=== PATIENT | male | born 1970 | race Caucasian/White ===

== ENCOUNTER 2020-05-18 21:34 | Emergency (ER) | payer MEDICARE, OTHER ==
[2020-05-18] MEDS ORDERED: HYDROmorphone 1 MG/ML 1 ML SYRINGE IVP STA (21:42)
[2020-05-18 21:44] VITALS: RESP 16; TEMP 98
--- NOTE | 2020-05-18 22:58 | US ---
EXAMINATION TYPE: US scrotum with doppler. Grayscale and color Doppler Duplex imaging performed of tamy jett scrotum. DATE OF EXAM: 05/18/2020 COMPARISON: NONE CLINICAL HISTORY: testicular pain. Pain x 1 week. EXAM MEASUREMENTS: TESTICLES: Right Testicle: 4.4 x 3.0 x 2.9 cm Left Testicle: 4.5 x 3.6 x 3.4 cm EPIDIDYMIS HEAD: Right Epididymis: 1.0 x 1.0 x 1.0 cm Left Epididymis: 0.7 x 1.5 x 1.1 cm Anechoic area seen within right epididymal head measuring 0.3 x 0.5 x 0.3 cm. Left epididymal head appears heterogeneous. Doppler performed to assess for testicular vascularity; bilateral color flow and waveforms are seen. Presence of hydroceles: Complex area seen on the right measurin.3 x 4.2 x 2.6 cm. Anechoic area seen on the left measuring 1.6 x 0.9 x 0.8 cm. Presence of varicoceles: Not seen. Superior and lateral to the right testicle, there appears to be a separate complex area seen measurin g 4.1 x 4.1 x 2.4 cm. IMPRESSION no testicular torsion or mass. There is complex right-sided large hydrocele. Small epididy mal cyst on the right side. No evidence of solid epididymal mass.:
--- NOTE | 2020-05-18 23:10 | ED ---
Male Urogenital HPI - General Chief complaint: Urogenital Stated complaint: Male Time Seen by Provider: 05/18/20 21:36 Source: patient, EMS Mode of arrival: EMS Limitations: no limitations - History of Present Illness Initial comments: Josh is a 49-year-old male presents the ER today via ambulance from a transfer from [facility] where he was evaluated for right-sided groin testicular pain. Patient reports pain began approximately week ago after shoveling snow but has progressively worsened. He noted progressively worsening swelling of th e right testicle. He denies any concern for sexually transmitted infection. Outpatient labs were unremarkable urinalysis without signs of infection, computed tomography scan shows a large vessels of the testicles and suggested an ultrasound be completed. Outside hospital did not have ultrasound capability so the patient was transferred here. - Related Data Allergies Allergy/AdvReac Type Severity Reaction Status Date / Time No Known Allergies Allergy Verified 05/18/20 22:01 Review of Systems ROS Statement: Those systems with pertinent positive or pertinent negative responses have been documented in the HPI. ROS Other: All systems not noted in ROS Statement are negative. Past Medical History Additional Past Medical History / Comment(s): bone infection in jaw 2007 History of Any Multi-Drug Resistant Organisms: None Reported Past Surgical History: Orthopedic Surgery Past Psychological History: Anxiety, Bipolar, Depression Smoking Status: Current every day smoker Past Alcohol Use History: Rare Past Drug Use History: Marijuana General Exam - General Exam Comments Initial Comments: Physical Exam GENERAL: Patient is well-developed and well-nourished. Patient is nontoxic and well-hydrated and is in no distress. HENT: Normocephalic, Atraumatic. EYES: PERRL, EOMI PULMONARY: Unlabored respirations. CARDIOVASCULAR: RRR Warm and well perfused extremities ABDOMEN: Non-distended SKIN: No rashes or bruising : Penis normal, circumcised Right testicle swollen and tender NEUROLOGIC: Alert and oriented Normal speech Normal gait MUSCULOSKELETAL: Moving all extremities with no apparent injury PSYCHIATRIC: No SI/HI Limitations: no limitations Course Vital Signs 05/18/20 21:38 Temperature 98 F Pulse Rate 88 Respiratory 16 Rate Blood Pressure 143/80 O2 Sat by Pulse 96 Oximetry Medical Decision Making - Medical Decision Making Patient care was discussed with transferring physician Ultrasound was ordered immediately upon arrival, was completed and reveals a large hydrocele with no signs of torsion or mass Were discussed with the patient who expresses relief, is comfortable with the plan for discharge home, supportive care was discussed referral to urology here in [facility] as well as an [place] which is closer to where the patient works was provided Disposition Clinical Impression: Hydrocele in adult Disposition: HOME SELF-CARE Instructions (If sedation given, give patient instructions): Hydrocele (ED) Is patient prescribed a controlled substance at d/c from ED?: No Referrals: Tran Dick MD [Primary Care Provider] - 1-2 days David Palma MD [STAFF PHYSICIAN] - 1-2 days Vik Angel MD [REFERRING] - 1-2 days
[2020-05-18 23:30] VITALS: BP 124/98; PULSE 75
== END 2020-05-18 23:30 | disposition home or self-care (01) ==
LOC: EC 21:34
DX: N43.3 Hydrocele, unspecified (principal); F17.200 Nicotine dependence, unspecified, uncomplicated
CPT/HCPCS: 93975; 76870; 99284; 96374; J1170

== ENCOUNTER → 2023-04-30 | Outpatient (CLI) | payer OTHER ==
--- NOTE | 2023-04-30 15:51 | P.SLEEP ---
History of Present Illness DATE: 04/30/2023 CONSULTATION/NEW PATIENT EVALUATION HISTORY OF PRESENT ILLNESS/SLEEP-WAKE EVALUATION: 52 year old gentleman had been evaluated in the sleep center for possible obstructive sleep apnea hypopnea syndrome. SLEEP SCHEDULE: Usually sleep schedule from 8 9 PM to 6:307 AM. FALLING ASLEEP: Patient has difficulties with falling asleep. DURING SLEEP: Patient snores and has multiple awakenings from sleep with episodes of gasping for air, grinding teeth. Positive history of sleep talking. Questionable positive history of hypnogogical hallucinations, no sleep paralysis, or cataplexy. DURING THE DAY/WAKE STATE: Patient wake up tired, has difficulties to place attention, has problems with memory, concentration, irritability. [place] sleepiness scale is in very high range of 17. Patient does not take any naps. PAST MEDICAL HISTORY: Bipolar disorder, anxiety, hyperlipidemia , sinuses problems, headaches, acid reflux. PAST SURGICAL HISTORY: Status post LeFort II fracture with bone replacement in 2006. MEDICATIONS: Vistaril, Aristada,. SOCIAL HISTO Positive history of smoking, quit in 2015, alcohol consumption negative. FAMILY HISTORY: Hypertension, heart problems, stroke, arthritis, tuberculosis, thyroid problems, during sleep. REVIEW OF SYSTEMS: Difficulties to initiate sleep, snoring, multiple awakenings from sleep, tiredness and sleepiness during the day. No fevers. No double vision. No recent chest pain. No shortness of breath. No abdominal pain. No bleeding episodes. No blood in urine. No seizure episodes. PHYSICAL EXAMINATION: GENERAL: A pleasant patient without any distress. VITAL SIGNS: BP 133/79 , HR 90 , RR 16 , weight 178 pounds, height 5 foot 10.5 inches, body mass index 25.1 . HEENT: PERRLA, EOMI. Evaluation of oropharynx showed tongue protrudes midline, low position of soft palate Mallampati 3-4. NECK: Supple. No JVD. Thyroid is not palpable. 15-3/4 inches in circumference. LUNGS: Clear to percussion and to auscultation. Good air exchange. No wheezing or rhonchi. HEART: S1, S2 regular. No murmurs, gallops or rubs. ABDOMEN: Soft and nontender. Bowel sounds are present. No organomegaly appreciated. EXTREMITIES: No clubbing or cyanosis. PURE PAK MACHINE OPERATOR: Awake, alert, and oriented x3. Cranial nerves 2 to 7 intact. There is no fasciculation or atrophy noted. No focal deficits observed. ASSESSMENT: 1. Snoring, multiple awakenings from sleep, extremely low position of soft palate, sleepiness. Obstructive sleep apnea-hypopnea syndrome. 2. Psychophysiological insomnia and insomnia secondary to anxiety. 3. History of bipolar. 4. History of anxiety. 5 Headaches. 6 . Acid reflux. 7. Status post low jaw fracture with bone replacement. 8. Sinuses problems. 9 . Hyperlipidemia PLAN: 1. Polysomnography for evaluation of patient's breathing during sleep. 2. Following plan after reading sleep test. 3. Preferable position during sleep on the side. 4. No driving if patient feels any sleepiness. Patient is aware of civil and criminal liability for unsafe driving. 5. Sleep hygiene with regular sleep time for at least 7.5-8 hours. 6. Watching weight. Thank you very much for referring this patient for consultation. Sincerely, Wild Timmons MD, PhD, FAASM. Diplomat of [employer], Sleep Medicine Board by [employer] [facility] [place] Past Medical History Additional Past Medical History / Comment(s): bone infection in jaw 2006 History of Any Multi-Drug Resistant Organisms: None Reported Past Surgical History: Orthopedic Surgery Past Psychological History: Anxiety, Bipolar, Depression Smoking Status: Current every day smoker Past Alcohol Use History: Rare Past Drug Use History: Marijuana Medications and Allergies Allergies Allergy/AdvReac Type Severity Reaction Status Date / Time No Known Allergies Allergy Verified 05/18/20 22:01 Sleep Note - Sleep Note Sleep Note: Temperature: Pulse Rate: Respiratory Rate: Blood Pressure: SpO2: Height: Weight: BMI: Neck Circumference:
== END ==
LOC: 3 N SLEEP 13:35
PROVIDERS: ATTEND Internal Medicine
DX: G47.33 Obstructive sleep apnea (adult) (pediatric) (principal); G47.10 Hypersomnia, unspecified; F51.04 Psychophysiologic insomnia; F41.9 Anxiety disorder, unspecified; F31.9 Bipolar disorder, unspecified; R51.9 Headache, unspecified; E78.5 Hyperlipidemia, unspecified; J32.9 Chronic sinusitis, unspecified; Z98.890 Other specified postprocedural states; Z87.81 Personal history of (healed) traumatic fracture; Z94.6 Bone transplant status; Z87.891 Personal history of nicotine dependence
CPT/HCPCS: 99212

== ENCOUNTER → 2023-04-30 | Outpatient (CLI) | payer OTHER ==
--- NOTE | 2023-04-30 14:32 | CTL ---
EXAMINATION TYPE: CT Low Dose Lung DATE OF EXAM ORDERED: 04/30/2023 COMPARISON: None HISTORY: . Low Dose CT Lung Screening CT DLP: 99.[address] CTDI: 2.7 mGy IV CONTRAST USED: None. SCREENING VISIT: First visit COMPARISON: None. TECHNIQUE: Low dose computed tomography scan was performed through the chest at 1 millimeter thick se ctions and reconstructed images in the coronal plane at [address] DIAGNOSTIC QUALITY: Satisfactory FINDINGS: LUNG NODULES: Not presentLeft lung: no nodules identified.Right lung: no nodules identified. Scatter ed parenchymal scarring noted. LUNGS: COPD: Severity: Moderate emphysematous change. Fibrosis: Severity:None Lymph nodes: None Other findings: None RIGHT PLEURAL SPACE: Effusion: None Calcification: None Thickening: None Pneumothorax: None LEFT PLEURAL SPACE: Effusion: None Calcification: None Thickening: None Pneumothorax: None HEART: Heart Size: Mildly enlarged Coronary calcification: Mild Pericardial effusion: None OTHER FINDINGS: Upper abdomen: No significant abnormality Bony thorax: Degenerative changes Supraclavicular region: No significant abnormalityOther: No significant abnormalityI IMPRESSION: No concerning pulmonary nodule seen. FOLLOW UP CT CHEST RECOMMENDATION: Follow-up screening in one year CT LUNG RAD: LUNG RAD CATEGORY 1 negative
== END | disposition home or self-care (01) ==
LOC: RADCTMAIN 12:59
PROVIDERS: ATTEND Family Medicine
DX: Z12.2 Encounter for screening for malignant neoplasm of respiratory organs (principal); F17.210 Nicotine dependence, cigarettes, uncomplicated
CPT/HCPCS: 71271

== ENCOUNTER 2023-05-30 19:37 | Outpatient (CLI) | payer OTHER ==
--- NOTE | 2023-05-31 11:48 | P.PCN ---
Description of Procedure: POLYSOMNOGRAPHY REPORT PROCEDURE(S)/DATE(S): Polysomnography 05/30/2023 CLINICAL: Patient has been seen in the sleep center for evaluation of obstructive sleep apnea-hypopnea syndrome. Please see my consultation. Sleep study has been done for evaluation of patient breathing during the sleep. PROCEDURE: The standard montage for clinical polysomnography included the electroencephalogram, the electrooculogram, the mentalis surface electromyography and Lead II cardiography. The respiratory battery consisted of measurements of nasal/buccal air flow, pressure transducer measurements from nose, thoracic and/or abdominal effort and intercostal surface electromyography. Video monitoring has been done to check for any parasomnia events. Nocturnal oxyhemoglobin saturations were obtained by finger oximetry. Step-bowser titration with positive airway pressure was utilized to control the respiratory events, if necessary. RESULTS: During the diagnostic sleep study sleep efficiency was in normal range 87.5%. Latency to sleep onset was short 5.0 min. Sleep architecture showed sta ge NI was short 1.8%, Delta sleep was normal 17.1%, REM sleep was slightly decreased to 17.3%. Respiratory channel showed 13 obstructive apneas, 0 mixed apneas, 0 central apneas, 6 hypopneas with lowest oxygen level 89%. Total apnea hypopnea index was 2.6. Heart rate was in the range between 61 and 71, average 66. EMG showed 0 periodic limb movements per hour. IMPRESSIONS: 1. No significant respiratory abnormalities have been documented during the sleep study, normal oxygenation during sleep. 2. No significant periodic limb movements have been documented. 3. Patient presents with symptoms of significant excessive daytime sleepiness with Artesian Sleepiness Scale 17, which dictate necessity for differential diagnosis with hypersomnia and narcolepsy. Please see other impressions from consultation PLAN: 1. Multiple sleep latency test for objective evaluation symptoms of excessive daytime sleepiness. 2. No driving if feeling sleepiness. 3. Sleep hygiene with regular time in bed for at least 7-1/2 hours. 4. Following plan after reading MSLT. Thank you very much for allowing me to participate in the management of your patient. Sincerely, Wild Timmons MD, PhD, FAASM. Diplomat of [place], Sleep Medicine Board by [place] [facility] [place]
== END 2023-05-31 06:05 | disposition home or self-care (01) ==
LOC: 3 N SLEEP 19:37
PROVIDERS: ATTEND Internal Medicine
DX: G47.33 Obstructive sleep apnea (adult) (pediatric) (principal); G47.10 Hypersomnia, unspecified
CPT/HCPCS: 95810

== ENCOUNTER 2023-07-10 19:46 | Outpatient (CLI) | payer OTHER ==
[2023-07-11 12:25] LABS: Urine Alcohol Negative (Negative)
[2023-07-11 12:26] LABS: Urine Barbiturate Negative (Negative); Urine Cocaine Negative (Negative); Urine Methadone Negative (Negative); Urine Opiates Negative (Negative); Urine Phencyclidine Negative (Negative)
--- NOTE | 2023-07-12 11:06 | P.PCN ---
Description of Procedure: POLYSOMNOGRAPHY AND MULTIPLE SLEEP LATENCY TEST REPORTS PROCEDURE(S)/DATE(S): Polysomnography 07/10/2023, MSLT 07/11/2023 CLINICAL: Patient has been seen in the sleep center for evaluation of obstructive sleep apnea-hypopnea syndrome. Please see my consultation. Sleep study has been done for evaluation of patient breathing during the sleep. PROCEDURE: The standard montage for clinical polysomnography included the electroencephalogram, the electrooculogram, the mentalis surface suha ctromyography and Lead II cardiography. The respiratory battery consisted of measurements of nasal/buccal air flow, pressure transducer measurements from nose, thoracic and/or abdominal effort and intercostal surface electromyography. Video monitoring has been done to check for any parasomnia events. Nocturnal oxyhemoglobin saturations were obtained by finger oximetry. Step-bowser titration with positive airway pressure was utilized to control the respiratory events, if necessary. RESULTS: During the diagnostic sleep study sleep efficiency was in high range 94.2%. Latency to sleep onset was normal 17.0 min. Sleep architecture showed stage NI was short 1.5%, Delta sleep was normal 16.4%, REM sleep was close to normal 18.9%. Respiratory channel showed 1 obstructive apneas, 0 mixed apneas, 3 central apneas, 6 hypopneas with lowest oxygen level 83%. Oxygen level was below or equal 88% for 1.3 minutes. Total apnea hypopnea index was 1.5. Heart rate was in the range between 71 and 81, average 76. EMG showed 0 periodic limb movements per hour. Multiple sleep latency test have been done on the following day and consisted from 5 opportunities for naps. Patient did not fell asleep on a naps. IMPRESSIONS: 1. No significant respiratory abnormalities during sleep. 2. No significant periodic limb movements have been documented. 3. High sleep efficiency during polysomnogram. 4. Multiple sleep latency test did not confirmed sleepiness. Patient did not fell asleep during naps opportunities. Please see other impressions from consultation PLAN: 1. Sleep hygiene with regular time in bed for at least 7-1/2 hours. 2. I will see patient for follow-up visit to explain results of the test and recommendations. 3. No driving if feeling sleepiness. Thank you very much for allowing me to participate in the management of your patient. Sincerely, Wild Timmons MD, PhD, FAASM. Diplomat of [employer], Sleep Medicine Board by [employer] Candle Extrusion Machine Operator [facility] [place]
== END 2023-07-11 16:45 | disposition home or self-care (01) ==
LOC: 3 N SLEEP 19:46
PROVIDERS: ATTEND Internal Medicine
DX: G47.33 Obstructive sleep apnea (adult) (pediatric) (principal); G47.10 Hypersomnia, unspecified; G47.8 Other sleep disorders
CPT/HCPCS: 80306; 95805; 95810